=== PATIENT | male | born 1950 | race Caucasian/White ===

== ENCOUNTER → 2016-11-28 | Outpatient (CLI) | payer BC ==
[~2016-11-28] MED LIST: AMLO-110 PO; ASPI-232 PO; CHOL1000 PO; LISI40TA PO; MULT-506 PO; NIAC500T7 PO; POTA75TA PO
[2016-11-28 12:36] LABS: ALB/GLOB RATIO 1.2 (0.9-2); ALKALINE PHOSPHATASE 82 U/L (45-117); ALT/SGPT 27 U/L (12-78); AST/SGOT 17 U/L (15-37); BLOOD UREA NITROGEN 15 mg/dl (7-18); BUN/CREATININE RATIO 17.2 (10-20); CARBON DIOXIDE 32 mmol/L (21-32); CHLORIDE 108 mmol/L (98-107); CHOLESTEROL 209 mg/dl (0-200); CHOLESTEROL/HDL RATIO 3.5; CREATININE 0.86 mg/dl (0.60-1.40); GLUCOSE 98 mg/dl (70-99); HDL CHOLESTEROL 59 mg/dl; LDL CHOLESTEROL CALCULATED 124 mg/dl; POTASSIUM 3.9 mmol/L (3.5-5.1); SODIUM 144 mmol/L (136-145); TRIGLYCERIDES 130 mg/dl (0-150); VERY LOW DENSITY LIPOPROT CALC 26 mg/dl
[2016-11-28 13:00] LABS: RATIO 5.1 mcg/mg (0-30.0)
== END | disposition home or self-care (01) ==
LOC: C.LAB 10:49
PROVIDERS: ATTEND Nurse Practitioner Family
DX: I10 Essential (primary) hypertension (principal); R73.9 Hyperglycemia, unspecified; Z13.220 Encounter for screening for lipoid disorders; Z12.5 Encounter for screening for malignant neoplasm of prostate